=== PATIENT | female | born 2000 | race African-American/Black ===

== ENCOUNTER 2024-04-13 19:44 | Emergency (ER) | payer MEDICAID ==
[~2024-04-13] VITALS: Ht 162.6 cm; Wt 59.0 kg
[2024-04-13 19:54] VITALS: O2SAT 99
[2024-04-13 20:37] VITALS: BP 107/72; PULSE 70; RESP 20; TEMP 98.4; O2SAT 100
[2024-04-13 21:02] LABS: CLARITY URINE CLEAR (CLEAR); COLOR URINE YELLOW (YELLOW); GLUCOSE URINE NEGATIVE (NEGATIVE); KETONES URINE NEGATIVE (NEGATIVE); LEUKOCYTE ESTERASE URINE 1+ (NEGATIVE); NITRITE URINE NEGATIVE (NEGATIVE); OCCULT BLOOD URINE NEGATIVE (NEGATIVE); PROTEIN URINE NEGATIVE (NEGATIVE); SPECIFIC GRAVITY URINE 1.022 (1.005-1.030); UROBILINOGEN URINE 0.2 E.U./dL (0.2-1.0)
[2024-04-13 21:23] LABS: BACTERIA URINE NONE SEEN; RBC URINE NONE SEEN /hpf (0-2); SQUAMOUS EPITHELIAL CELL URINE 1+ /lpf (RARE/1+)
[2024-04-13] MEDS ORDERED: CEPH500C2 MT (22:50)
[2024-04-13] MEDS ORDERED: CEPHALEXIN 250MG CAPSULE PO ONE (23:45)
== END 2024-04-13 23:15 | disposition home or self-care (01) ==
LOC: ER 19:44
DX: N39.0 Urinary tract infection, site not specified (principal)
CPT/HCPCS: 81003; 81025; 87210; 99283